=== PATIENT | female | born 1955 | race African-American/Black ===

== ENCOUNTER → 2023-06-17 | Outpatient (CLI) | payer MEDICARE ==
[~2023-06-17] MED LIST: COZAAR 50MG50 MG/TAB PO; CRESTOR5 MG PO; GLUCOPHAGE1000 MG PO; GLUCOTROL10 MG PO; LANTUS SOLOS100 U/ML SQ; SYNTHROID0.05 MG/TA PO
== END ==
LOC: COL.RAD 09:48
DX: E04.2 Nontoxic multinodular goiter (principal)

== ENCOUNTER → 2023-12-29 | Outpatient (CLI) | payer MEDICARE | LOC: DIA.ED 10-19 10:17 | DX: E11.9 Type 2 diabetes mellitus without complications (principal); Z79.4 Long term (current) use of insulin; I10 Essential (primary) hypertension; E78.5 Hyperlipidemia, unspecified; E03.9 Hypothyroidism, unspecified | CPT/HCPCS: G0108 ==

== ENCOUNTER 2024-03-10 15:39 | Emergency (ER) | payer MEDICARE ==
[~2024-03-10] VITALS: Ht 152.4 cm; Wt 57.3 kg
[2024-03-10 15:48] VITALS: TEMP 98.9
[2024-03-10] MEDS ORDERED: fentaNYL 50 MCG/ML 2 ML VIAL IV ONE (16:45)
[2024-03-10 16:52] LABS: BASO % 0.5 % (0.0-2.0); EOS # 0.1 K/mm3 (0.0-0.7); EOS % 1.5 % (0.0-4.0); GRAN # 4.8 K/mm3 (1.4-6.5); GRAN % 61.3 % (42.2-75.2); HEMOGLOBIN 14.4 g/dl (12.5-16.0); LYMPH # 1.7 K/mm3 (1.2-3.4); LYMPH % 21.1 % (20.0-51.0); MEAN CELL VOLUME 85 fl (80.0-100.0); MEAN CORPUSCULAR HEMOGLOBIN 28 pg (27-31); MEAN CORPUSCULAR HGB CONC 33 g/dl (33.0-37.0); MEAN PLATELET VOLUME 9.3 fl (7.4-10.4); MONO # 1.2 K/mm3 (0.1-0.6); MONO % 15.3 % (1.7-9.3); PLATELET COUNT 245 K/mm3 (130-400); RED BLOOD COUNT 5.18 M/mm3 (4.10-5.30)
[2024-03-10 17:12] LABS: ALANINE AMINOTRANSFERASE 37 U/L (0-55); ALKALINE PHOSPHATASE 41 U/L (40-150); ANION GAP 12 mmol/L (7-16); AST,SGOT 38 U/L (5-34); BILIRUBIN,TOTAL 0.4 mg/dL (0.2-1.2); BLOOD UREA NITROGEN 15 mg/dL (10-20); CALCIUM 9.8 mg/dL (8.4-10.2); CHLORIDE 101 mEq/L (98-107); CREATININE, serum 0.86 mg/dL (0.57-1.11); GLUCOSE 113 mg/dL (70-99); POTASSIUM 4.5 mEq/L (3.5-4.5); SODIUM 138 mEq/L (136-145); TOTAL PROTEIN 7.8 g/dl (6.2-8.1)
[2024-03-10 17:19] LABS: TROPONIN-I < 0.010 ng/mL (0.00-0.033)
[2024-03-10 18:37] LABS: COLLECTION METHOD CLEAN CATCH
[2024-03-10 18:47] LABS: PH 6.5 (5.0-8.5); URINE APPEARANCE CLEAR (CLEAR/HAZY); URINE BLOOD NEGATIVE (NEGATIVE); URINE COLOR YELLOW (YELLOW); URINE GLUCOSE 2+ (NEGATIVE); URINE KETONE TRACE (NEGATIVE); URINE NITRATE NEGATIVE (NEGATIVE); URINE PROTEIN(semi-quant) TRACE (NEGATIVE); URINE UROBILINOGEN 0.2 E.U/dL (0.2-1.0)
[2024-03-10] MEDS ORDERED: NEURONTIN100 MG/CAP PO (19:16)
[2024-03-10 19:24] VITALS: BP 109/83; PULSE 96
== END 2024-03-10 19:29 | disposition home or self-care (01) ==
LOC: COL.ER 15:39
PROVIDERS: Family Medicine
DX: G50.0 Trigeminal neuralgia (principal)
CPT/HCPCS: J3010